=== PATIENT | male | born 1970 | race Two or more races ===

== ENCOUNTER 2023-03-07 19:41 | Emergency (ER) | payer OTHER ==
[2023-03-07] MEDS ORDERED: Cyclobenzaprine 10 MG Tab PO ONE (22:01)
[2023-03-07] MEDS ORDERED: Ketorolac 30 MG/ML SDV IM ONE (22:01)
== END 2023-03-07 22:40 | disposition home or self-care (01) ==
LOC: MW.ED 19:41
DX: M25.512 Pain in left shoulder (principal); M54.50 Low back pain, unspecified; M54.6 Pain in thoracic spine; V89.2XXA Person injured in unspecified motor-vehicle accident, traffic, initial encounter; Y92.410 Unspecified street and highway as the place of occurrence of the external cause
CPT/HCPCS: 72072; 72100; 73030; 73080; 96372; 99284; A9270; J1885; 99283